=== PATIENT | male | born 1965 | race Caucasian/White ===

== ENCOUNTER 2024-05-31 00:43 | Emergency (ER) | payer BC, SELFPAY ==
[2024-05-31 01:14] VITALS: BP 148/86; PULSE 89; RESP 20; TEMP 37.7; O2SAT 98; BMI 35.5
--- NOTE | 2024-05-31 01:19 | XR_ITS ---
Examination: PA lateral chest 2 views TECHNIQUE: Upright PA lateral chest 2 views Exam date and time: May 31, 2024 0152 hours Comparison July 27, 2021 INDICATIONS: Coughing fever beginning one week ago. FINDINGS: Suspicious for early pneumonia right base Left lung clear Normal heart size IMPRESSION: Suspicious for early right base pneumonia
[2024-05-31 01:24] VITALS: TEMP 37.7
[2024-05-31] MEDS: ACETAMINOPHEN 500 MG TABLET 1000 MG PO (01:24)
--- NOTE | 2024-05-31 01:24 | PD.EDURI ---
Upper Respiratory Inf. RME/HPI General Chief Complaint: Flu Like Symptoms Stated Complaint: sick for a week Time Seen by Provider: 05/31/24 00:56 Source: patient Arrival date/time: 05/31/24 00:43 59-year-old male with a history of type 2 diabetes and hypertension presents to the emergency room with a chief complaint of cough, congestion, fever x 1 week Mode of arrival: ambulatory Limitations: no limitations Related Data Home Medications ?Medication ?Instructions ?Recorded ?Confirmed Metformin Hcl 1 tab PO BID ##0 06/08/17 01/27/21 metoprolol succinate 50 mg 50 mg PO BID ##0 06/08/17 01/27/21 tablet,extended release 24 hr (Toprol XL) fenofibrate 54 mg tablet 120 mg PO QDAY 01/27/21 01/27/21 Allergies Allergy/AdvReac Type Severity Reaction Status Date / Time oxycodone Allergy Intermediate RASH Verified 01/27/21 08:06 codeine Allergy Unknown RASH Verified 01/27/21 08:06 latex Allergy Unknown RASH Verified 01/27/21 08:06 Penicillins Allergy Unknown Rash Verified 01/27/21 08:08 amoxicillin Allergy RASH Verified 01/27/21 08:06 Review of Systems Review of Systems Systems Reviewed: All systems reviewed, normal except as documented Constitutional Constitutional: Reports system reviewed and no additional complaints, except as documented, Denies fatigue, Reports fever(s), Denies headache(s) and Denies weakness Eyes Eyes: Reports system reviewed and no additional complaints, except as documented, Denies blurry vision and Denies change in vision ENT Ears, Nose, Mouth, and Throat: Reports system reviewed and no additional complaints, except as documented, Denies otalgia, Denies headache(s), Denies nasal congestion, Denies throat swelling and Denies vertigo Cardiovascular Cardiovascular: Reports system reviewed and no additional complaints, except as documented, Reports chest pain, Reports dyspnea and Denies dyspnea on exertion Respiratory Respiratory: Reports system reviewed and no additional complaints, except as documented, Reports chest congestion, Reports cough, Reports dyspnea, Denies dyspnea on exertion and Denies wheezing Gastrointestinal Gastrointestinal: Reports system reviewed and no additional complaints, except as documented, Denies abdominal pain, Denies cramping, Denies nausea and Denies vomiting Genitourinary Genitourinary: Reports system reviewed and no additional complaints, except as documented, Denies dysuria and Denies hematuria Musculoskeletal Musculoskeletal: Reports system reviewed and no additional complaints, except as documented and Denies back pain Integumentary/Breasts Skin/Breast: Reports system reviewed and no additional complaints, except as documented and Denies wounds Neurologic Neurologic: Reports system reviewed and no additional complaints, except as documented, Denies confusion, Denies headache(s), Denies lack of coordination, Denies vertigo and Denies weakness Psychiatric Psychiatric: Reports system reviewed and no additional complaints, except as documented, Denies anxiety, Denies confusion, Denies depression, Denies paranoia, Denies suicidal ideation and Denies tactile hallucinations Endocrine Endocrine: Reports system reviewed and no additional complaints, except as documented and Denies fatigue Hematologic/Lymphatic Hematologic/Lymphatic: Reports system reviewed and no additional complaints, except as documented and Denies lymphadenopathy Allergic/Immunologic Allergic/Immunologic: Reports system reviewed and no additional complaints, except as documented, Denies throat swelling, Denies urticaria and Denies wheezing Past Medical History Past Medical History CARDIAC: Positive Cardiac Disorders and Hypertension; Negative Congestive Heart Failure RESPIRATORY: Negative Chronic Obstructive Pulmonary Disease (COPD) or Asthma GENITOURINARY: Negative Renal Disease ENDOCRINE: Positive Diabetes Mellitus Type 2; Negative Diabetes Mellitus Type 1 HEMATOLOGIC: Negative Sickle Cell Disease OTHER HISTORY: Positive Autoimmune Disease Surgical History SURGICAL: Positive Nose Surgery Social History SMOKING STATUS: Former smoker SUBSTANCE USE: does not use ED Exam General Limitations: Present no limitations General appearance: Present alert and in no apparent distress Head Head exam: Present atraumatic Eye Eye exam: Present normal appearance, PERRL and EOMI ENT ENT exam: Present normal exam, normal oropharynx and mucous membranes moist Neck Neck exam: Present normal inspection, full ROM and trachea midline Chest Chest inspection: Present normal inspection and symmetric chest wall rise Respiratory Respiratory exam: Present normal lung sounds bilaterally Cardiovascular Cardiovascular exam: Present regular rate, normal rhythm and normal heart sounds Abdominal Exam Abdominal exam: Present soft and normal bowel sounds Extremities Exam Extremities exam: Present normal inspection and full ROM Back Exam Back exam: Present normal inspection and full ROM Neurological Exam Neurological exam: Present alert, oriented X3 and CN II-XII intact Psychiatric Psychiatric exam: Present normal affect and normal mood Skin Skin exam: Present warm, dry, intact and normal color Course Quality Measures none Orders Category Date Time Status Bedside COVID-19 Antigen Test NOW Care 05/31/24 01:19 Completed Bedside Influenza A&B Antigen Test NOW Care 05/31/24 01:19 Completed XR chest 2V Stat Exams 05/31/24 01:19 Taken Acetaminophen Tab [Tylenol ES Tab] Med 05/31/24 01:19 Discontinued 1,000 mg PO X1 ONE Vital Signs Vital signs: Vital Signs Temperature 100 F 05/31/24 01:14 Pulse Rate 89 05/31/24 01:14 Respiratory Rate 20 05/31/24 01:14 Blood Pressure 148/86 H 05/31/24 01:14 Pulse Oximetry (%) 98 05/31/24 01:14 Oxygen Delivery Method Room Air 05/31/24 01:14 Saturation 98% within normal limits Upper Respiratory Infection MDM Narrative MDM Narrative:: 59-year-old male with a history of type 2 diabetes and hypertension presents to the emergency room with a chief complaint of cough, congestion, fever x 1 week Patient is hemodynamically stable and nontoxic-appearing. Patient has clear bilateral lung sounds with no wheezing or any abnormal breath sounds. Influenza was positive. Patient was discharged and educated to follow-up with primary care provider and return to the emergency room for any evidence of worsening signs or symptoms Patient data External records reviewed:: [facility] previous records Clinical information provided by:: patient Social determinants that could affect healthcare access:: none Patient has the following chronic illnesses:: Type 2 diabetes How is presenting disease/condition affected by chronic disease/condition?: uneffected by Evaluation data The following diagnostics were reviewed and interpreted by me:: lab results Lab and/or radiology exams considered but not ordered:: Labs and radiology exams considered and ordered Interpretation Summary: N/A Medications / Prescriptions Medications or Prescriptions considered but not ordered:: Medication given Medication administrations:: Medication Administration History Discontinued Medications Acetaminophen (Acetaminophen 500 Mg Tablet) 1,000 mg PO X1 ONE Stop: 05/31/24 01:20 Last Admin: 05/31/24 01:24 Dose: 1,000 mg Documented By: CVL Medication given Consultations Consultation(s) initiated? (list below): No Diagnosis Upper Respiratory Differential Diagnosis: upper respiratory infection, viral infection, bronchitis, influenza and pharyngitis Most likely diagnosis given after review of the tests above:: Influenza Admission Indicated Admission indicated?: not indicated Admission Request Was there a request for admission?: No Disposition Plan Disposition Plan: Discharge Discharge Attestation Discharge Attestation: The patient and all family members were given an opportunity to ask questions and understood the discharge instructions. Discharge instructions specifically effects, indications for sooner follow up or return to the emergency department, and the expected course of current diagnosis. Patient condition: Stable Discharge Plan Plan Patient Disposition: HOME (Self Care) Disposition Comment: Stable Prescriptions/Referrals Prescriptions/Med Rec: No Action metoprolol succinate [Toprol XL] 50 MG tablet extended release 24 hr 50 mg PO BID Qty: 0 Metformin Hcl 1,000 MG tablet 1 tab PO BID Qty: 0 fenofibrate 54 mg tablet 120 mg PO QDAY Patient Comments: TAKE 1 TABLET BY MOUTH EVERY DAY Problem List Clinical Impression: Influenza A Patient/Caregiver Discharge Instructions Education Materials: ED Influenza (Adult) Additional Instructions: Please follow-up with your primary care provider in the next 24 to 48 hours. Chest x-ray was negative for any pneumonic infiltrates. Influenza A was positive For any evidence of worsening signs or symptoms please return to the emergency room immediately. Please continue to take Tylenol and ibuprofen for fever management Print Language: Yoruba Stand Alone Forms: [employer] Award Info., Patient Portal Info Letter PA/ANNETTE Supervising Physician SHAYE/ANNETTE Supervising Physician: Dr. Messer
== END 2024-05-31 03:20 | disposition home or self-care (01) ==
LOC: SERX 06:17
PROVIDERS: Emergency Provider Emergency Medicine; PCP Nurse Practitioner
DX: J10.1 Influenza due to other identified influenza virus with other respiratory manifestations (principal); Z87.891 Personal history of nicotine dependence
CPT/HCPCS: 71046; 87400; 87811; 99283; A9270

== ENCOUNTER 2024-09-01 09:38 | Inpatient (IN) | payer BC, SELFPAY ==
[2024-09-01] VITALS (8 sets, daily range): BP systolic 125–205; BP diastolic 82–125; PULSE 80–123; RESP 18–96; TEMP 36.7–37; O2SAT 94–100; BMI 33.9; BMI 34.4
--- NOTE | 2024-09-01 09:58 | XR_ITS ---
Examination: CT soft tissue neck, without intravenous contrast. 2-D coronal reconstructions. 2-D sagittal reconstructions. Date and time of exam :September 01, 2024 1301 hours INDICATIONS: Swelling to the right side of the face and head beginning 3 days ago. CTDI: vol (mGy):15.7 DLP: (mGycm):402 Technique: 1.25 mm axial sections of the neck of the obtained. Coronal and sagittal reconstructions have been obtained. Low dose protocols were performed. One or more of the following dose reduction techniques were used; automated exposure control, adjustment of the mA and/or KV according to patient size, use of iterative reconstruction technique. Findings: Enlarged right parotid gland with periparotid inflammatory change Multiple carotid triangle lymph nodes and lymph nodes adjacent to both parotid glands which may be reactive, the largest measures 13 mm There is also asymmetric enlargement of the right submandibular gland with inflammatory change The larynx appears normal There is edema in the right oropharynx which may be secondary to the severe sialadenitis Normal epiglottis Satisfactory alignment cervical vertebral bodies IMPRESSION: Findings most consistent with severe sialadenitis involving the right parotid and right submandibular gland with reactive lymphadenopathy, follow-up ultrasound imaging suggested
--- NOTE | 2024-09-01 09:58 | XR_ITS ---
Examination: CT brain head without contrast. 2-D sagittal coronal reconstructions Date and time of exam:September 01, 2024 1259 hours INDICATIONS: Right sided swelling in the head right-sided ear pain 3 days CTDI: vol (mGy):54.3 DLP: (mGycm):1118 Technique: Multiple CT axial sections of the brain have been obtained, 5 mm slice thickness. Contrast has not been administered. 2-D sagittal, coronal reconstructions have been obtained Low dose protocols were performed. One or more of the following dose reduction techniques were used; automated exposure control, adjustment of the mA and/or KV according to patient size, use of iterative reconstruction technique. Findings: No significant ventricular enlargement. Intra-axial or extra-axial hemorrhage density is not seen. No mass effect or midline shift Basal cisterns are not remarkable. Fourth ventricle is midline. Cranial vault intact. Impression: Negative for acute hemorrhage, mass effect or midline shift Enlarged right parotid gland with periparotid inflammatory change most consistent with sialadenitis
--- NOTE | 2024-09-01 10:02 | PD.EDRME ---
Rapid Medical Screening Exam RME Arrival date/time: 09/01/24 09:38 This is a 59-year-old male that is being seen today for weakness, hard time swallowing, around right ear swelling along with right neck swelling that is been going on for the past 3 days. Patient was seen by a telemetry doc and was given antibiotics doxycycline. Patient states pain is worse. Patient reports that this started off as an ear infection and is significantly gotten worse. Patient has a history of diabetes, high blood pressure. I have greeted and performed a focused initial assessment of this patient. Initial appropriate labs ordered at this time. A comprehensive ED assessment and evaluation of the patient and analysis of all test and completion of medical decision making process will be conducted by additional ED provider. Chief Complaint: Dental/Oral/Throat Time Seen by Provider: 09/01/24 09:47 Vital signs: Vital Signs Temperature 98.1 F 09/01/24 09:47 Pulse Rate 123 H 09/01/24 09:47 Respiratory Rate 21 H 09/01/24 09:47 Blood Pressure 125/84 09/01/24 09:47 Pulse Oximetry (%) 100 09/01/24 09:47 Oxygen Delivery Method Room Air 09/01/24 09:47
[2024-09-01 11:02] LABS: Lactate (Lactic Acid) 3.7 mMol/L (0.4-2.0)
[2024-09-01 11:09] LABS: Basophils # (Auto) 0.1 Thou/mm3 (0.0-0.2); Basophils % (Auto) 0 % (0-2.5); Eosinophils % (Auto) 0 % (0-10); Hematocrit 45.6 % (41.0-53.0); Immature Granulocytes % (Auto) 1 % (0-0); Immature Granulocytes Auto 0.13 Thou/mm3 (0.00-0.00); Lymphocytes # (Auto) 2.7 Thou/mm3 (1.0-4.8); Lymphocytes % (Auto) 11 % (10-50); Mean Corpuscular HGB Conc 35.1 g/dl (31.0-37.0); Mean Corpuscular Hemoglobin 29.5 pg (25.0-35.0); Mean Corpuscular Volume 84 fL (80-100); Monocytes # (Auto) 1.7 Thou/mm3 (0.0-0.8); Monocytes % (Auto) 7 % (0-12); Neutrophils % (Auto) 82 % (37-80); Nucleated Red Blood Cell % 0 /100 WBC (0); Platelet Count 299 Thou/mm3 (140-440); RDW Standard Deviation 38.8 fL (35.1-43.9); Red Blood Count 5.42 Miln/mm3 (4.50-5.90); White Blood Count 24.6 Thou/mm3 (3.8-10.6)
[2024-09-01 11:31] LABS: Alanine Aminotransferase 24 U/L (10-49); Albumin, Serum 4.6 gm/dL (3.5-5.0); Albumin/Globulin Ratio 1.4 (1.2-2.2); Alkaline Phosphatase 96 U/L (46-116); Anion Gap 15 (7-16); Aspartate Amino Transferase 21 U/L (0-34); BUN/Creatinine Ratio 14 Ratio (12-20); Bilirubin,Total 0.6 mg/dL (0.3-1.2); Blood Urea Nitrogen 21 mg/dL (9-23); C-Reactive Protein > 10.0 mg/dL (0.0-0.9); Calcium 9.7 mg/dL (8.3-10.6); Calcium (Corrected) 9.7 mg/dL (8.5-10.1); Carbon Dioxide 17.4 mMol/L (20.0-31.0); Chloride 101 mMol/L (98-107); Creatinine (Component) 1.5 mg/dL (0.6-1.3); Estimated Creatinine Clearance 57.3 mL/min (>60); Globulin 3.3 gm/dL (2.3-3.5); Glucose 391 mg/dL (74-106); Osmolality,Calculated 285 (275-295); Potassium 4.3 mMol/L (3.4-5.1); Procalcitonin 0.61 ng/ml (0.0-0.49); Sodium 133 mMol/L (136-145); Total Protein 7.9 gm/dL (5.7-8.2); eGFR 53 See Note
--- NOTE | 2024-09-01 12:07 | PD.EDDENTL ---
ED Dental RME/HPI General Chief complaint: Dental/Oral/Throat Stated complaint: SWOLLEN RIGHT JAW Time Seen by Provider: 09/01/24 09:47 Arrival date/time: 09/01/24 09:38 RME / HPI RME / HPI Narrative: 09/01/24 09:38 This is a 59-year-old male that is being seen today for weakness, hard time swallowing, around right ear swelling along with right neck swelling that is been going on for the past 3 days. Patient was seen by a telemetry doc and was given antibiotics doxycycline. Patient states pain is worse. Patient reports that this started off as an ear infection and is significantly gotten worse. Patient has a history of diabetes, high blood pressure. I have greeted and performed a focused initial assessment of this patient. Initial appropriate labs ordered at this time. A comprehensive ED assessment and evaluation of the patient and analysis of all test and completion of medical decision making process will be conducted by additional ED provider. DR. DERAS MAIN ED EVALUATION: Related Data Home Medications ?Medication ?Instructions ?Recorded ?Confirmed Metformin Hcl 1 tab PO BID ##0 06/08/17 01/27/21 metoprolol succinate 50 mg 50 mg PO BID ##0 06/08/17 01/27/21 tablet,extended release 24 hr (Toprol XL) fenofibrate 54 mg tablet 120 mg PO QDAY 01/27/21 01/27/21 Allergies Allergy/AdvReac Type Severity Reaction Status Date / Time oxycodone Allergy Intermediate RASH Verified 09/01/24 09:41 codeine Allergy Unknown RASH Verified 09/01/24 09:41 latex Allergy Unknown RASH Verified 09/01/24 09:41 Penicillins Allergy Unknown Rash Verified 09/01/24 09:41 amoxicillin Allergy RASH Verified 09/01/24 09:41 Course Orders Category Date Time Status CT head/brain wo con Stat Exams 09/01/24 09:[address] soft tissue neck wo con Stat Exams 09/01/24 09:58 Ordered Blood Culture (Lab) Stat Lab 09/01/24 10:47 Received CBC Stat Lab 09/01/24 10:52 Completed CRP [C-Reactive Protein] Stat Lab 09/01/24 10:52 Completed Comprehensive Metabolic Panel Stat Lab 09/01/24 10:52 Completed Lactate (Lactic Acid) Stat Lab 09/01/24 10:52 Results Procalcitonin Stat Lab 09/01/24 10:52 Completed LORazepam [Ativan Inj] Med 09/01/24 11:37 Discontinued 1 mg IVP X1 ONE Sodium Chloride 0.9% 1000 ml [Ns] 1,000 ml Med 09/01/24 11:37 Active IV 999 mls/hr Vancomycin/Ns 1 gm Ivpb 200 ml Med 09/01/24 11:37 Active IV X1 cefTRIAXone/D5w 1gm IV premix [Rocephin/D5w 1gm IV Med 09/01/24 11:37 Discontinued premix] 1 gm in 50 ml IV X1 fentaNYL INJ [Sublimaze Inj] Med 09/01/24 11:37 Discontinued 50 mcg IVP X1 ONE Vital Signs Vital signs: Vital Signs Temperature 98.1 F 09/01/24 09:47 Pulse Rate 123 H 09/01/24 09:47 Respiratory Rate 21 H 09/01/24 09:47 Blood Pressure 125/84 09/01/24 09:47 Pulse Oximetry (%) 100 09/01/24 09:47 Oxygen Delivery Method Room Air 09/01/24 09:47 Dental / Oral Medications / Prescriptions Medication administrations:: Medication Administration History Vancomycin/Sodium Chloride (Vancomycin/Ns 1 Gm Ivpb) 200 mls @ 120 mls/hr IV X1 ONE Stop: 09/01/24 13:16 Sodium Chloride (Ns) 1,000 mls @ 999 mls/hr IV .Q1H1M ONE Stop: 09/01/24 12:37 Discontinued Medications Fentanyl Citrate (Fentanyl Cit Inj 50 Mcg/Ml Amp 2ml) 50 mcg IVP X1 ONE Stop: 09/01/24 11:38 Ceftriaxone Sodium/Dextrose (Rocephin/D5w 1gm Iv Premix) 1 gm in 50 mls @ 100 mls/hr IV X1 ONE Stop: 09/01/24 12:06 Lorazepam (Lorazepam 2 Mg/Ml Vial) 1 mg IVP X1 ONE Stop: 09/01/24 11:38 Discharge Plan Prescriptions/Referrals Prescriptions/Med Rec: No Action metoprolol succinate [Toprol XL] 50 MG tablet extended release 24 hr 50 mg PO BID Qty: 0 Metformin Hcl 1,000 MG tablet 1 tab PO BID Qty: 0 fenofibrate 54 mg tablet 120 mg PO QDAY Patient Comments: TAKE 1 TABLET BY MOUTH EVERY DAY Referrals: Hien,Lisa, [employer]IST [Primary Care Provider] - In 1 week Patient/Caregiver Discharge Instructions Print Language: Setswana
--- NOTE | 2024-09-01 12:09 | PD.EDEAR ---
ED Ear RME/HPI General Chief complaint: Dental/Oral/Throat Stated complaint: SWOLLEN RIGHT JAW Time Seen by Provider: 09/01/24 09:47 Arrival date/time: 09/01/24 09:38 RME / HPI RME / HPI Narrative: 09/01/24 09:38 This is a 59-year-old male that is being seen today for weakness, hard time swallowing, around right ear swelling along with right neck swelling that is been going on for the past 3 days. Patient was seen by a telemetry doc and was given antibiotics doxycycline. Patient states pain is worse. Patient reports that this started off as an ear infection and is significantly gotten worse. Patient has a history of diabetes, high blood pressure. I have greeted and performed a focused initial assessment of this patient. Initial appropriate labs ordered at this time. A comprehensive ED assessment and evaluation of the patient and analysis of all test and completion of medical decision making process will be conducted by additional ED provider. DR. JULIAN MAIN ED EVALUATION: 59 year old male with history of diabetes, hypertension, presented to the ER with chief complaint of right ear pain and swelling for the past 3 days that traveled to the right side of the jaw/neck due to an ear infection. Per patient, has difficulty swallowing accomplained by weakness. Patient states that he was given antibiotics doxycycline but the pain continued to get worse. Patient states he has allergies to oxycodone, codeine, penicillin, and amoxicillin. Related Data Home Medications ?Medication ?Instructions ?Recorded ?Confirmed Metformin Hcl 1 tab PO BID ##0 06/08/17 01/27/21 metoprolol succinate 50 mg 50 mg PO BID ##0 06/08/17 01/27/21 tablet,extended release 24 hr (Toprol XL) fenofibrate 54 mg tablet 120 mg PO QDAY 01/27/21 01/27/21 Allergies Allergy/AdvReac Type Severity Reaction Status Date / Time oxycodone Allergy Intermediate RASH Verified 09/01/24 09:41 codeine Allergy Unknown RASH Verified 09/01/24 09:41 latex Allergy Unknown RASH Verified 09/01/24 09:41 Penicillins Allergy Unknown Rash Verified 09/01/24 09:41 amoxicillin Allergy RASH Verified 09/01/24 09:41 Review of Systems Review of Systems Systems Reviewed: All systems reviewed, normal except as documented Narrative Review of Systems: Gen: No fever, no chills, no weight loss EYES: No discharge, no visual changes, no pain HEENT: +ear pain and swelling, +difficulty swallowing, no congestion, no sore throat PULM: No shortness of breath, no cough, no congestion CV: No chest pain, no dyspnea on exertion, no palpitations GI: No nausea, no vomiting, no diarrhea, no pain, no constipation : No frequency, no urgency, no dysuria Musc/skel: No joint pain, no back pain Skin: No rash Psyc: No hallucinations, no depression Heme/Lymph: No easy bleeding or bruising tendencies Neuro: +weakness, no headache Past Medical History Past Medical History CARDIAC: Positive Hypercholesterolemia and Hypertension RESPIRATORY: Positive Respiratory Disorders and Pneumonia REPRODUCTIVE: Negative Testicular Cancer MUSCULOSKELETAL: Positive Musculoskeletal Disorders and Arthritis ENDOCRINE: Positive Endocrine Disorders and Diabetes Mellitus Type 2 (Jardiance and metformin) PSYCHO/SOCIAL: Positive Anxiety OTHER HISTORY: Positive Autoimmune Disease, Anesthesia Reactions (Per pt unable to sleep for 2 weeks after sx) and Measles; Negative Testicular Cancer Surgical History SURGICAL: Positive Nose Surgery and Knee Sx Social History SMOKING STATUS: Never smoker SUBSTANCE USE: does not use ED Exam Narrative Physical exam: GENERAL APPEARANCE: alert and oriented x 4, well-developed, well-nourished, no acute distress HEENT: Normocephalic, right jaw edema, tenderness ; pupils equal, round, reactive to light; EOMI; mucous membranes pink, moist; oropharynx clear NECK: Supple LUNGS: CTABL; no wheezes, no rales, no rhonchi HEART: Regular rate, regular rhythm; normal S1, S2; no murmurs ABDOMEN: non distended; normal BS; soft, no tenderness, no guarding, no rebound; no masses, no organomegaly, no hernia BACK: no CVA tenderness EXTREMITIES: atraumatic; no edema NEUROLOGIC: awake; alert and oriented x4; cranial nerves II-XII grossly intact; no focal sensory or motor deficits PSYCHIATRIC: appropriate mood and affect SKIN: warm, dry, erythema; no rashes Course Quality Measures none Orders Category Date Time Status CT head/brain wo con Stat Exams 09/01/24 09:[address] soft tissue neck wo con Stat Exams 09/01/24 09:58 Completed Blood Culture (Lab) Stat Lab 09/01/24 10:47 Received CBC Stat Lab 09/01/24 10:52 Completed CRP [C-Reactive Protein] Stat Lab 09/01/24 10:52 Completed Comprehensive Metabolic Panel Stat Lab 09/01/24 10:52 Completed Lactate (Lactic Acid) Stat Lab 09/01/24 10:52 Completed Lactic Acid, 3 HR Stat Lab 09/01/24 14:02 Received Procalcitonin Stat Lab 09/01/24 10:52 Completed LORazepam [Ativan Inj] Med 09/01/24 11:37 Discontinued 1 mg IVP X1 ONE Sodium Chloride 0.9% 1000 ml [Ns] 1,000 ml Med 09/01/24 11:37 Discontinued IV 999 mls/hr Vancomycin/Ns 1 gm Ivpb 200 ml Med 09/01/24 11:37 Discontinued IV X1 cefTRIAXone/D5w 1gm IV premix [Rocephin/D5w 1gm IV Med 09/01/24 11:37 Discontinued premix] 1 gm in 50 ml IV X1 fentaNYL INJ [Sublimaze Inj] Med 09/01/24 11:37 Discontinued 50 mcg IVP X1 ONE Vital Signs Vital signs: Vital Signs Temperature 98.1 F 09/01/24 09:47 Pulse Rate 123 H 09/01/24 09:47 Respiratory Rate 21 H 09/01/24 09:47 Blood Pressure 125/84 09/01/24 09:47 Pulse Oximetry (%) 100 09/01/24 09:47 Oxygen Delivery Method Room Air 09/01/24 09:47 Ear MDM Narrative MDM Narrative:: IBetty am scribing for and in the presence of Dr. Julian Patient data External records reviewed:: [facility] previous records Clinical information provided by:: patient and spouse Social determinants that could affect healthcare access:: none Patient has the following chronic illnesses:: diabetes, hypertension How is presenting disease/condition affected by chronic disease/condition?: uneffected by Evaluation data The following diagnostics were reviewed and interpreted by me:: lab results and radiology exam(s) Lab and/or radiology exams considered but not ordered:: none Interpretation Summary: Ordering Physician: Madeline Damon NP Date of Service: 09/01/24 Procedure(s): CT head/brain wo con Accession Number(s): [id number] cc: Lisa Stanford; Juan Alberto Gutierrez MD; Madeline Damon NP~ Examination: CT brain head without contrast. 2-D sagittal coronal reconstructions Date and time of exam:September 01, 2024 1259 hours INDICATIONS: Right sided swelling in the head right-sided ear pain 3 days CTDI: vol (mGy):54.3 DLP: (mGycm):1118 Technique: Multiple CT axial sections of the brain have been obtained, 5 mm slice thickness. Contrast has not been administered. 2-D sagittal, coronal reconstructions have been obtained Low dose protocols were performed. One or more of the following dose reduction techniques were used; automated exposure control, adjustment of the mA and/or KV according to patient size, use of iterative reconstruction technique. Findings: No significant ventricular enlargement. Intra-axial or extra-axial hemorrhage density is not seen. No mass effect or midline shift Basal cisterns are not remarkable. Fourth ventricle is midline. Cranial vault intact. Impression: Negative for acute hemorrhage, mass effect or midline shift Enlarged right parotid gland with periparotid inflammatory change most consistent with sialadenitis Dictated By: Juan Alberto Gutierrez MD Signed By: <Electronically signed by Juan Alberto Gutierrez MD in OV> 09/01/24 1323 Ordering Physician: Madeline Damon NP Date of Service: 09/01/24 Procedure(s): CT soft tissue neck wo con Accession Number(s): [id number] cc: Lisa Stanford; Juan Alberto Gutierrez MD; Madeline Damon NP~ Examination: CT soft tissue neck, without intravenous contrast. 2-D coronal reconstructions. 2-D sagittal reconstructions. Date and time of exam :September 01, 2024 1301 hours INDICATIONS: Swelling to the right side of the face and head beginning 3 days ago. CTDI: vol (mGy):15.7 DLP: (mGycm):402 Technique: 1.25 mm axial sections of the neck of the obtained. Coronal and sagittal reconstructions have been obtained. Low dose protocols were performed. One or more of the following dose reduction techniques were used; automated exposure control, adjustment of the mA and/or KV according to patient size, use of iterative reconstruction technique. Findings: Enlarged right parotid gland with periparotid inflammatory change Multiple carotid triangle lymph nodes and lymph nodes adjacent to both parotid glands which may be reactive, the largest measures 13 mm There is also asymmetric enlargement of the right submandibular gland with inflammatory change The larynx appears normal There is edema in the right oropharynx which may be secondary to the severe sialadenitis Normal epiglottis Satisfactory alignment cervical vertebral bodies IMPRESSION: Findings most consistent with severe sialadenitis involving the right parotid and right submandibular gland with reactive lymphadenopathy, follow-up ultrasound imaging suggested Dictated By: Juan Alberto Gutierrez MD Signed By: <Electronically signed by Juan Alberto Gutierrez MD in OV> 09/01/24 1331 Medications / Prescriptions Medications or Prescriptions considered but not ordered:: none Medication administrations:: Medication Administration History Discontinued Medications Fentanyl Citrate (Fentanyl Cit Inj 50 Mcg/Ml Amp 2ml) 50 mcg IVP X1 ONE Stop: 09/01/24 11:38 Last Admin: 09/01/24 12:15 Dose: 50 mcg Documented By: STEPAN Vancomycin/Sodium Chloride (Vancomycin/Ns 1 Gm Ivpb) 200 mls @ 120 mls/hr IV X1 ONE Stop: 09/01/24 13:16 Last Admin: 09/01/24 13:17 Dose: 120 mls/hr Documented By: STEPAN Sodium Chloride (Ns) 1,000 mls @ 999 mls/hr IV .Q1H1M ONE Stop: 09/01/24 12:37 Last Admin: 09/01/24 12:24 Dose: 999 mls/hr Documented By: STEPAN Ceftriaxone Sodium/Dextrose (Rocephin/D5w 1gm Iv Premix) 1 gm in 50 mls @ 100 mls/hr IV X1 ONE Stop: 09/01/24 12:06 Last Admin: 09/01/24 12:25 Dose: 100 mls/hr Documented By: STEPAN Lorazepam (Lorazepam 2 Mg/Ml Vial) 1 mg IVP X1 ONE Stop: 09/01/24 11:38 Last Admin: 09/01/24 12:14 Dose: 1 mg Documented By: STEPAN see above. Consultations Consultation(s) initiated? (list below): No Consultation #1 (Physician, Specialty, Details): 1346: Admission Resident working with Dr. Birmingham made aware of the patient?s HPI, PMHx, lab and/or radiology results. Treatment plan was discussed. Will admit for further evaluation and management. Accepts patient for admission. Diagnosis Ear Differential Diagnosis: otitis externa, otitis media and cerumen impaction Most likely diagnosis given after review of the tests above:: sialadenitis Admission Indicated Admission indicated?: indicated Admission Request Was there a request for admission?: Yes Admission Attestation Admission request attestation: Discussed case with [] from Hospitalist service regarding admission. Discussed patients ED course, exam findings, labs, and radiology results. The Hospitalist [agrees,declines] to accept the patient for admission. Disposition Plan Disposition Plan: Admit Medical Decision Making Lab Data 09/01/24 10:52 09/01/24 10:52 Labs: Lab Results 09/01/24 Range/Units 10:52 WBC 24.6 H (3.8-10.6) Thou/mm3 RBC 5.42 (4.50-5.90) Miln/mm3 Hgb 16.0 (13.5-16.0) g/dL Hct 45.6 (41.0-53.0) % MCV 84 (80-100) fL MCH 29.5 (25.0-35.0) pg MCHC 35.1 (31.0-37.0) g/dl RDW Std Deviation 38.8 (35.1-43.9) fL Plt Count 299 (140-440) Thou/mm3 Neut % (Auto) 82 H (37-80) % Lymph % (Auto) 11 (10-50) % [place] % (Auto) 7 (0-12) % Eos % (Auto) 0 (0-10) % Baso % (Auto) 0 (0-2.5) % Neut # (Auto) 20.0 H (1.8-7.7) Thou/mm3 Lymph # (Auto) 2.7 (1.0-4.8) Thou/mm3 [place] # (Auto) 1.7 H (0.0-0.8) Thou/mm3 Eos # (Auto) 0.0 (0.0-0.5) Thou/mm3 Baso # (Auto) 0.1 (0.0-0.2) Thou/mm3 Immature Gran # (Auto) 0.13 H (0.00-0.00) Thou/mm3 Absolute Nucleated RBC 0.00 (0.00-0.00) Thou/mm3 Immature Gran % 1 H (0-0) % Nucleated RBC % 0 (0) /100 WBC Sodium 133 L (136-145) mMol/L Potassium 4.3 (3.4-5.1) mMol/L Chloride 101 (98-107) mMol/L Carbon Dioxide 17.4 L (20.0-31.0) mMol/L Anion Gap 15 (7-16) BUN 21 (9-23) mg/dL Creatinine 1.5 H (0.6-1.3) mg/dL Estim Creat Clear Calc 57.3 L (>60) mL/min eGFR 53 L (60 - ) See Note BUN/Creatinine Ratio 14 (12-20) Ratio Glucose 391 H (74-106) mg/dL Calculated Osmolality 285 (275-295) Lactic Acid 3.7 H (0.4-2.0) mMol/L Calcium 9.7 (8.3-10.6) mg/dL Corrected Calcium 9.7 (8.5-10.1) mg/dL Total Bilirubin 0.6 (0.3-1.2) mg/dL AST 21 (0-34) U/L ALT 24 (10-49) U/L Alkaline Phosphatase 96 (46-116) U/L C-Reactive Prot, Quant > 10.0 H (0.0-0.9) mg/dL Total Protein 7.9 (5.7-8.2) gm/dL Albumin 4.6 (3.5-5.0) gm/dL Globulin 3.3 (2.3-3.5) gm/dL Albumin/Globulin Ratio 1.4 (1.2-2.2) Procalcitonin 0.61 H (0.0-0.49) ng/ml Discharge Plan Plan Patient Disposition: Admit Acute Care w/in Hospital Prescriptions/Referrals Prescriptions/Med Rec: No Action metoprolol succinate [Toprol XL] 50 MG tablet extended release 24 hr 50 mg PO BID Qty: 0 Metformin Hcl 1,000 MG tablet 1 tab PO BID Qty: 0 fenofibrate 54 mg tablet 120 mg PO QDAY Patient Comments: TAKE 1 TABLET BY MOUTH EVERY DAY Referrals: Lisa Stanford FNP [Primary Care Provider] - In 1 week Problem List Clinical Impression: Sialadenitis Patient/Caregiver Discharge Instructions Print Language: Cameroonian Stand Alone Forms: [facility] Award Info., Patient Portal Info Letter
[2024-09-01] MEDS: LORazepam 2 MG/ML VIAL 1 MG IVP (12:14)
[2024-09-01] MEDS: fentaNYL CIT INJ 50 mCg/ML AMP 2ML IVP (12:15)
[2024-09-01] MEDS: SODIUM CHLORIDE 0.9% 1000 ML 1,000 ML 999 ML IV (12:24)
[2024-09-01] MEDS: cefTRIAXone/D5w 1gm IV premix 1 GM/50 ML BAG IV (12:25)
[2024-09-01] MEDS: VANCOMYCIN/NS 1 GM IVPB 200 ML IV ×2 (13:17→21:55)
[2024-09-01 13:57] LABS: Reflex Lactate? Y
[2024-09-01 14:05] LABS: Lactic Acid, 3 HR 2.5 mMol/L (0.4-2.0)
--- NOTE | 2024-09-01 15:25 | ESHP_ITS ---
<Statement entered by Aris Whitten MD - 09/02/24 10:56> I discussed with and supervised the electrical engineering intern physician involved in the care of this patient. Patient assessment and plan was discussed with entire medicine team, including my attending. I agree with the assessment and plan as documented by electrical engineering intern doctor. Patient care was discussed with my attending physician Dr. Valencia Whitten, PGY-2 Documentation for date of: 09/01/24 HPI History of Present Illness Chief complaint: facial pain History of present illness: Sina Mccann is 59 yr male with PMH of hypertension, Xbo-ssvgcqy-porufchwc type 2 diabetes, and hyperlipidemia presenting to ED due to right-sided facial pain parotid area since the past 3 days. Patient stated that he was in usual state of health there was onset of right ear pain. Ear pain progressed to cheek and jaw pain. Endorses dry mouth, chills, sweats, decreased appetite, dysuria, pain with swallowing. Has had poor oral intake since onset of symptoms. Denies any previous episodes in the past. There have been no recent dental procedures or any oral trauma. Pain is 10/10, dull, non radiating, not causing any other symptoms except dry mouth. In ED, BP 125/84, tachycardic 125, afebrile. Leukocytosis a WBC 24, sodium 133, creatinine 1.5, glucose 391, lactic acid elevated 3.7, Pro-Jonathan elevated 0.61. Otherwise unremarkable. CT soft tissue neck confirmed severe sialadenitis involving the right parotid and right submandibular gland with reactive lymphadenopathy. He was given fentanyl 50 mcg x 1, 1 L bolus NS, ceftriaxone 1 g x 1, vancomycin x 1. Patient will be admitted for treatment of sialadenitis with antibiotics. PMH: as noted above PSH: b/l menisci surgery FamHx: non contributory Social: retired, lives with . Denies smoking, denies drinking. Meds: amlodipine 2.5 mg daily, metoprolol succ 50mg BID, valsartan 160mg daily Allergies: oxycodone, codeine, latex, penicillin (rashes) Review of Systems Review of Systems Systems Reviewed: All systems reviewed, normal except as documented Exam Vital Signs Temp Pulse Resp BP Pulse Ox O2 Del Method 98.0 F 115 H 20 177/91 H 96 Room Air 09/01/24 14:56 09/01/24 14:56 09/01/24 14:56 09/01/24 14:56 09/01/24 14:56 09/01/24 14:56 Narrative Exam General: Middle aged male, acute distress from pain, hard time speaking. HEENT: NCAT, No JVD noted. Mucosa dry. Pupils are equal and reactive to light bilaterally, right parotid area inflammed and swollen. Tender to touch. Could not examine inside mouth due to pain. Cardiovascular: Normal S1 and S2. Regular rate and rhythm. Respiratory: Lungs are clear to auscultation bilaterally. No wheezing or crackles heard. Abdomen: Soft, nontender, not distended, normal bowel sounds. Skin: Warm to touch, dry, no rashes noted Musculoskeletal: No gross injuries. Able to move all 4 extremities. No pitting edema Neuro: Alert and oriented x3. No focal neuro deficits. Psych: Normal affect and mood Results: Labs 09/02/24 05:30 09/02/24 05:30 Labs: Short CBC 09/01/24 Range/Units 10:52 WBC 24.6 H (3.8-10.6) Thou/mm3 Hgb 16.0 (13.5-16.0) g/dL Hct 45.6 (41.0-53.0) % Plt Count 299 (140-440) Thou/mm3 BMP 09/01/24 10:52 Sodium 133 L Potassium 4.3 Chloride 101 Carbon Dioxide 17.4 L BUN 21 Creatinine 1.5 H Glucose 391 H Calcium 9.7 Liver Function 09/01/24 Range/Units 10:52 Total Bilirubin 0.6 (0.3-1.2) mg/dL AST 21 (0-34) U/L ALT 24 (10-49) U/L Alkaline Phosphatase 96 (46-116) U/L Albumin 4.6 (3.5-5.0) gm/dL Quality Measures Quality Measures none Medications Home Medications and Allergies Home Medications ?Medication ?Instructions ?Recorded ?Confirmed ?Type Metformin Hcl 0.5 tab PO BID ##0 06/08/17 09/01/24 History metoprolol succinate 50 mg 50 mg PO BID ##0 06/08/17 0 09/01/24 History tablet,extended release 24 hr (Toprol XL) fenofibrate 54 mg tablet 120 mg PO QDAY 01/27/2108/08 History amlodipine 2.5 mg tablet 2.5 mg PO QDAY 09/01/2408/08 History atorvastatin 20 mg tablet 20 mg PO QDAY 09/01/2409/01 History diclofenac sodium 75 mg 75 mg PO QDAY 09/01/2409/01 History tablet,delayed release empagliflozin 25 mg tablet 25 mg PO QDAY 09/01/2408/08 History (Jardiance) famotidine 20 mg tablet 20 mg PO QDAY 09/01/2409/01 History gemfibrozil 600 mg tablet 600 mg PO QDAY 09/01/2408/08 History glipizide 5 mg tablet, extended 5 mg PO QDAY 09/01/24 09/01/24 History release 24 hr pregabalin 50 mg capsule 50 mg PO QDAY 09/01/2409/01 History semaglutide 7 mg tablet (Rybelsus) 7 mg PO QDAY 09/01/24 History tamsulosin 0.4 mg capsule 0.4 mg PO Q24H 09/01/2408/08 History valsartan 160 mg tablet 160 mg PO QDAY 09/01/2408/08 History Allergies Allergy/AdvReac Type Severity Reaction Status Date / Time oxycodone Allergy Intermediate RASH Verified 09/01/24 09:41 codeine Allergy Unknown RASH Verified 09/01/24 09:41 latex Allergy Unknown RASH Verified 09/01/24 09:41 Penicillins Allergy Unknown Rash Verified 09/01/24 09:41 amoxicillin Allergy RASH Verified 09/01/24 09:41 Visit Medications Acetaminophen (Acetaminophen 325 Mg Tablet) 650 mg PO Q6H PRN PRN Reason: Fever >100.3 or pain 1-3 Stop: 10/01/24 15:12 Enoxaparin Sodium (Enoxaparin Sod Inj 40 Mg/0.4 Ml Syringe) 40 mg SC QDAY DANY Stop: 09/16/24 08:59 Cefepime HCl 2 gm/ Sodium (Chloride) 50 mls @ 100 mls/hr IV Q12HR DANY Stop: 09/08/24 15:23 Ketorolac Tromethamine (Ketorolac Inj 30 Mg/Ml Vial) 30 mg IVP X1 ONE Stop: 09/01/24 15:25 Morphine Sulfate (Morphine Sulf Inj 10 Mg/Ml Vial) 1 mg IVP Q4HR PRN PRN Reason: pain 6-10 Ondansetron HCl (Ondansetron Inj 2 Mg/Ml Inj 2 Ml) 4 mg IV Q6H PRN; Protocol PRN Reason: NAUSEA OR VOMITING Stop: 10/01/24 15:12 Pharmacy Consult (Vancomycin Pharmacy To Dose 1 Each Each) 1 each IV QDAY DANY Stop: 10/01/24 15:29 Discontinued Medications Fentanyl Citrate (Fentanyl Cit Inj 50 Mcg/Ml Amp 2ml) 50 mcg IVP X1 ONE Stop: 09/01/24 11:38 Last Admin: 09/01/24 12:15 Dose: 50 mcg Vancomycin/Sodium Chloride (Vancomycin/Ns 1 Gm Ivpb) 200 mls @ 120 mls/hr IV X1 ONE Stop: 09/01/24 13:16 Last Admin: 09/01/24 13:17 Dose: 120 mls/hr Sodium Chloride (Ns) 1,000 mls @ 999 mls/hr IV .Q1H1M ONE Stop: 09/01/24 12:37 Last Admin: 09/01/24 12:24 Dose: 999 mls/hr Ceftriaxone Sodium/Dextrose (Rocephin/D5w 1gm Iv Premix) 1 gm in 50 mls @ 100 mls/hr IV X1 ONE Stop: 09/01/24 12:06 Last Admin: 09/01/24 12:25 Dose: 100 mls/hr Lorazepam (Lorazepam 2 Mg/Ml Vial) 1 mg IVP X1 ONE Stop: 09/01/24 11:38 Last Admin: 09/01/24 12:14 Dose: 1 mg Assessment & Plan Plan Sina Mccann is 59 yr male with PMH of hypertension, Vdl-ujiyvet-pqhsqznfp type 2 diabetes, and hyperlipidemia presenting to ED due to right-sided facial pain parotid area since the past 3 days. Ear pain progressed to cheek and jaw pain. Endorses dry mouth, chills, sweats, decreased appetite, dysuria. Patient will be admitted for treatment of sialadenitis. #Sepsis 2/2 Severe sialadenitis #Leukocytosis DDx: Stone blockage, Sjogren's syndrome, poor oral hygiene, anticholinergics Started as ear pain 3 days ago and progressively worsened. Patient has difficulty swallowing, tender to touch, dry mouth, sweats, chills. CT soft tissue neck confirmed severe sialadenitis involving the right parotid and right submandibular gland with reactive lymphadenopathy. Patient meets SIRS/4, sepsis alert called. Sepsis ruled in with evidence of endorgan damage as evidenced with OMAR. Leukocytosis a WBC 24, lactic acid elevated 3.7, Pro-Jonathan elevated 0.61, afebrile on admission. -Cefepime 2 g BID (09/01-) ? Pain management with ketorolac 30 mg IV and morphine 1 mg IV q4hr PRN - Vancomycin (09/01-) - Blood cultures pending ? Full liquid diet ? Follow-up ultrasound soft tissue head and neck #OMAR Most likely pre renal in setting of poor oral intake past few days. Cr at admission 1.5. (Cr baseline appears to be 1.2) -x1 more bolus NS for total of two -avoid nephrotoxic agents -daily CMP #Hx HTN #Hx HLD ? Resumed amlodipine 2.5 mg daily ? Metoprolol succinate 50 mg p.o. BID ? Valsartan 160 mg daily Health maintenance: Dispo: med surg, abx FEN: full liquid DVT prophylaxis: Lovenox 40 CODE STATUS: Full code The patient's management plan was discussed with my attending physician Dr. Birmingham. Kathryn Mcnally, PGY-1 Attending Provider Attestation/Addendum I discussed with and supervised the resident physician who took care of this patient. I agree with the assessment and plan as above. Patient was seen and examined in ER bed 9. Complains of right ear pain and facial pain with mass and right cheek area. X-ray showed sialoadenitis. Discussed with Dr. Julian. She will call for ENT evaluation. Patient will be admitted for antibiotic treatment
--- NOTE | 2024-09-01 15:37 | PC.NURSE ---
Notified Dr. Mcnally of pt BP of 205/125 (R arm) and 194/103 (L arm). MD asked RN to enter home BP meds in system and she will order meds to resume
--- NOTE | 2024-09-01 15:45 | XR_ITS ---
Examination: Ultrasound soft tissue neck TECHNIQUE: Carpenter scale sonographic images soft tissue neck Examination date time: September 01, 2024 1544 hours INDICATIONS: Right neck swelling and pain beginning 3 days ago FINDINGS: Multiple soft tissue neck lymph nodes, the largest in the right neck 19 x 13 mm, 11 x 8 mm, 19 x 7 mm, largest in the left neck 15 x 7 mm, 19 x 11 mm, 12 x 8 mm IMPRESSION: Significant cervical lymphadenopathy, these were noted on the CT soft tissue neck study today, likely reactive relative to the sialadenitis involving the right parotid and right submandibular gland, which are not commented upon by the technologist
[2024-09-01] MEDS: KETOROLAC INJ 30 MG/ML VIAL IVP (16:13)
[2024-09-01] MEDS: CEFEPIME INJ 2 GM in SODIUM CHLORIDE 0.9% (Popper) 50 ML IV ×2 (16:14→20:17)
[2024-09-01] MEDS: VALSARTAN 80 MG TABLET 160 MG PO (16:20)
[2024-09-01] MEDS: amLODIPine BESYLATE 2.5 MG TABLET PO (16:21)
[2024-09-01] MEDS: METOPROLOL SUCCINATE XL 25 MG TABCR 50 MG PO (20:17)
[2024-09-01] MEDS: KETOROLAC INJ 30 MG/ML VIAL 15 MG IVP (22:42)
[2024-09-01 23:22] LABS: Collection Type, Urine Clean Catch; RBC,Urine 0 /hpf (0-3); WBC,Urine 0 /hpf (0-5)
[2024-09-02] VITALS (10 sets, daily range): BP systolic 103–169; BP diastolic 54–99; PULSE 63–103; RESP 16–99; TEMP 35.8–37.2; O2SAT 92–97
[2024-09-02 00:20] LABS: Bilirubin,Urine Negative (Negative); Blood,Urine Negative (Negative); Clarity,Urine Clear (Clear/Hazy); Color,Urine Lt-Yellow (Lt Yel-Yel); Glucose, Urine 4+ (Negative); Ketones,Urine 1+ (Negative); Leukocyte Esterase,Urine Negative (Negative); Nitrite,Urine Negative (Negative); Protein,Urine 2+ (Neg - Trace); Specific Gravity,Urine 1.022 (1.001-1.035); Squamous Epithelial Cell,Urine < 1 /hpf (0-5); Urobilinogen,Urine Negative mg/dL (0.0-1.0)
[2024-09-02] MEDS: MORPHINE SULF INJ 10 MG/ML VIAL IVP (04:36)
[2024-09-02 06:35] LABS: Alanine Aminotransferase 23 U/L (10-49); Albumin, Serum 4.5 gm/dL (3.5-5.0); Albumin/Globulin Ratio 1.5 (1.2-2.2); Alkaline Phosphatase 103 U/L (46-116); Anion Gap 12 (7-16); Aspartate Amino Transferase 23 U/L (0-34); BUN/Creatinine Ratio 18 Ratio (12-20); Bilirubin,Total 0.4 mg/dL (0.3-1.2); Blood Urea Nitrogen 22 mg/dL (9-23); Calcium 9.5 mg/dL (8.3-10.6); Calcium (Corrected) 9.5 mg/dL (8.5-10.1); Carbon Dioxide 22.2 mMol/L (20.0-31.0); Chloride 98 mMol/L (98-107); Creatinine (Component) 1.2 mg/dL (0.6-1.3); Estimated Creatinine Clearance 72.1 mL/min (>60); Globulin 3.1 gm/dL (2.3-3.5); Glucose 280 mg/dL (74-106); Magnesium 1.7 mg/dL (1.6-2.6); Osmolality,Calculated 277 (275-295); Potassium 3.9 mMol/L (3.4-5.1); Sodium 132 mMol/L (136-145); Total Protein 7.6 gm/dL (5.7-8.2); eGFR > 60 See Note
[2024-09-02 06:40] LABS: Basophils # (Auto) 0.1 Thou/mm3 (0.0-0.2); Basophils % (Auto) 0 % (0-2.5); Eosinophils # (Auto) 0.1 Thou/mm3 (0.0-0.5); Eosinophils % (Auto) 1 % (0-10); Hematocrit 44.2 % (41.0-53.0); Hemoglobin 15.4 g/dL (13.5-16.0); Immature Granulocytes % (Auto) 0 % (0-0); Immature Granulocytes Auto 0.08 Thou/mm3 (0.00-0.00); Lymphocytes # (Auto) 2.4 Thou/mm3 (1.0-4.8); Lymphocytes % (Auto) 13 % (10-50); Mean Corpuscular HGB Conc 34.8 g/dl (31.0-37.0); Mean Corpuscular Hemoglobin 29.8 pg (25.0-35.0); Mean Corpuscular Volume 86 fL (80-100); Monocytes # (Auto) 1.5 Thou/mm3 (0.0-0.8); Monocytes % (Auto) 8 % (0-12); Neutrophils # (Auto) 14.2 Thou/mm3 (1.8-7.7); Neutrophils % (Auto) 77 % (37-80); Nucleated Red Blood Cell % 0 /100 WBC (0); Platelet Count 248 Thou/mm3 (140-440); RDW Standard Deviation 39.3 fL (35.1-43.9); Red Blood Count 5.16 Miln/mm3 (4.50-5.90); White Blood Count 18.5 Thou/mm3 (3.8-10.6)
[2024-09-02] MEDS: LORazepam 0.5 MG TABLET PO ×2 (08:01→17:15)
[2024-09-02] MEDS: VALSARTAN 80 MG TABLET 160 MG PO (08:02)
[2024-09-02] MEDS: METOPROLOL SUCCINATE XL 25 MG TABCR 50 MG PO ×2 (08:02→20:19)
[2024-09-02] MEDS: amLODIPine BESYLATE 2.5 MG TABLET PO (08:02)
[2024-09-02] MEDS: CEFEPIME INJ 2 GM in SODIUM CHLORIDE 0.9% (Popper) 50 ML IV (08:03)
[2024-09-02] MEDS: NAPH,KPH MBDB 1 PACKET (1.5 GM) PO (08:17)
[2024-09-02] MEDS: VANCOMYCIN/NS 1 GM IVPB 200 ML IV (09:51)
[2024-09-02] MEDS: INSULIN GLARGINE (Lantus) 5 UNIT/0.05 ML (PER 5 UNITS) 15 UNIT SC (09:53)
--- NOTE | 2024-09-02 11:36 | PD.RESPRO ---
Documentation for date of: 09/02/24 Subjective Subjective Interval history: Patient examined at bedside. Overnight patient had continued right-sided facial pain and was given ketorolac 15 mg IV x 1. This morning still complains of severe pain also present in the ear. Very sensitive to touch. Unable to perform otoscope exam. Patient has remained afebrile since admission, vitals stable. Leukocytosis improving to 18 today. OMAR resolved with adequate fluids, creatinine 1.2. Ultrasound soft tissue neck confirms sial adenitis with multiple enlarged lymph nodes, reactive. Will continue with current pain management, blood cultures are pending. Stop cefepime and vancomycin and start patient on ciprofloxacin, metronidazole for anaerobic coverage as well. Patient will need to closely follow-up with ENT at time of discharge. Will continue to closely monitor. Exam Vital Signs Temp Pulse Resp BP Pulse Ox O2 Del Method 96.4 F L 77 18 150/93 H 92 L Room Air 09/02/24 08:00 09/02/24 09:29 09/02/24 09:29 09/02/24 08:02 09/02/24 08:00 09/02/24 08:00 Narrative Exam General: Middle aged male, acute distress from pain, hard time speaking. HEENT: NCAT, No JVD noted. Mucosa dry. Pupils are equal and reactive to light bilaterally, right parotid area inflammed and swollen. Tender to touch. Could not examine inside mouth due to pain. Cardiovascular: Normal S1 and S2. Regular rate and rhythm. Respiratory: Lungs are clear to auscultation bilaterally. No wheezing or crackles heard. Abdomen: Soft, nontender, not distended, normal bowel sounds. Skin: Warm to touch, dry, no rashes noted Musculoskeletal: No gross injuries. Able to move all 4 extremities. No pitting edema Neuro: Alert and oriented x3. No focal neuro deficits. Psych: Normal affect and mood Objective Labs 09/02/24 05:30 09/02/24 05:30 Labs: Laboratory Results - last 24 hr 09/01/24 09/01/24 09/02/24 14:02 22:24 05:30 WBC 18.5 H D RBC 5.16 Hgb 15.4 Hct 44.2 MCV 86 MCH 29.8 MCHC 34.8 RDW Std Deviation 39.3 Plt Count 248 D Neut % (Auto) 77 Lymph % (Auto) 13 [place] % (Auto) 8 Eos % (Auto) 1 Baso % (Auto) 0 Neut # (Auto) 14.2 H Lymph # (Auto) 2.4 [place] # (Auto) 1.5 H Eos # (Auto) 0.1 Baso # (Auto) 0.1 Immature Gran # (Auto) 0.08 H Absolute Nucleated RBC 0.00 Immature Gran % 0 Nucleated RBC % 0 Sodium 132 L Potassium 3.9 Chloride 98 Carbon Dioxide 22.2 Anion Gap 12 BUN 22 Creatinine 1.2 Estim Creat Clear Calc 72.1 eGFR > 60 BUN/Creatinine Ratio 18 Glucose 280 H D Calculated Osmolality 277 Lactic Acid 2.5 H Calcium 9.5 Corrected Calcium 9.5 Phosphorus 2.0 L Magnesium 1.7 Total Bilirubin 0.4 AST 23 ALT 23 Alkaline Phosphatase 103 Total Protein 7.6 Albumin 4.5 Globulin 3.1 Albumin/Globulin Ratio 1.5 Ur Collection Type Clean Catch Urine Color Lt-Yellow Urine Clarity Clear Urine pH 6.0 Ur Specific [place] 1.022 Urine Protein 2+ A Urine Glucose (UA) 4+ A Urine Ketones 1+ A Urine Blood Negative Urine Nitrite Negative Urine Bilirubin Negative Urine Urobilinogen (Auto) Negative Ur Leukocyte Esterase Negative Urine RBC 0 Urine WBC 0 Ur Squamous Epith Cells < 1 Urine Bacteria None Quality Measures Quality Measures none Assessment & Plan Assessment Current Active Medications: Generic Name Dose Route Start Last Admin Trade Name Freq PRN Reason Stop Dose Admin Acetaminophen 650 mg 09/01/24 16:17 Acetaminophen 325 Mg Tablet PO 10/01/24 15:12 Q6H PRN Fever >100.3 or pain Amlodipine Besylate 2.5 mg 09/01/24 15:45 09/02/24 08:02 Amlodipine Besylate 2.5 Mg Tablet PO 10/01/24 15:44 2.5 mg QDAY DANY Administration Dextrose 25 ml 09/02/24 08:36 Dextrose 50%-Water Inj 50 Ml Syringe IV 10/02/24 08:35 Q15MIN PRN BG 50-70 responsive npo pt Dextrose 50 ml 09/02/24 08:36 Dextrose 50%-Water Inj 50 Ml Syringe IV 10/02/24 08:35 Q15MIN PRN BG <50 OR BG <70 & pt unresponsive Enoxaparin Sodium 40 mg 09/02/24 09:00 09/02/24 08:03 Enoxaparin Sod Inj 40 Mg/0.4 Ml Syringe SC 09/16/24 08:59 Not Given QDAY DANY Glucagon 1 mg 09/02/24 08:36 Glucagon Inj 1 Mg Vial IM Q15MIN PRN BG <70, and no IV access Ciprofloxacin/Dextrose 200 mg in 100 mls @ 100 mls/hr 09/02/24 11:35 Cipro Ivpb IV 09/09/24 11:34 Q12HR DANY Metronidazole 500 mg in 100 mls @ 200 mls/hr 09/02/24 11:35 Flagyl 500 Mg Iv IV 09/09/24 11:34 Q8HR [facility] Insulin Glargine 15 unit 09/02/24 09:00 09/02/24 09:53 Insulin Glargine (Lantus) 5 Unit/0.05 Ml (Per 5 Units) SC 10/02/24 08:59 15 unit QDAY DANY Administration Insulin Human Lispro 0 unit 09/02/24 11:30 Insulin Lispro (Admelog) 1 Unit/0.01 Ml Unit SC 10/02/24 11:29 ACHS [facility] Protocol Metoprolol Succinate 50 mg 09/01/24 21:00 09/02/24 08:02 Metoprolol Succinate Xl 25 Mg Tabcr PO 10/01/24 20:59 50 mg BID DANY Administration Morphine Sulfate 1 mg 09/01/24 15:18 09/02/24 04:36 Morphine Sulf Inj 10 Mg/Ml Vial IVP 1 mg Q4HR PRN Administration pain 6-10 Ondansetron HCl 4 mg 09/01/24 15:13 Ondansetron Inj 2 Mg/Ml Inj 2 Ml IV 10/01/24 15:12 Q6H PRN NAUSEA OR VOMITING Protocol Valsartan 160 mg 09/01/24 15:45 09/02/24 08:02 Valsartan 80 Mg Tablet PO 10/01/24 15:44 160 mg QDAY [facility] Administration Plan Sina Mccann is 59 yr male with PMH of hypertension, [id number]-apgnjqdlh type 2 diabetes, and hyperlipidemia presenting to ED due to right-sided facial pain parotid area since the past 3 days. Ear pain progressed to cheek and jaw pain. Endorses dry mouth, chills, sweats, decreased appetite, dysuria. Patient will be admitted for treatment of sialadenitis. #Sepsis 2/2 Severe sialadenitis #Leukocytosis DDx: Stone blockage, Sjogren's syndrome, poor oral hygiene, anticholinergics Started as ear pain 3 days ago and progressively worsened. Patient has difficulty swallowing, tender to touch, dry mouth, sweats, chills. CT soft tissue neck confirmed severe sialadenitis involving the right parotid and right submandibular gland with reactive lymphadenopathy. U/s soft tissue neck: Significant cervical LAD as noted on CT. Likely reactive to condition. Patient meets SIRS/4, sepsis alert called. Sepsis ruled in with evidence of endorgan damage as evidenced with OMAR. Leukocytosis a WBC 24, lactic acid elevated 3.7, Pro-Jonathan elevated 0.61, afebrile on admission. -stop Cefepime 2 g BID and vancomycin (09/01-) -start IV ciprofloxacin 200mg TID + IV metronidazole 500mg TID ? Pain management with ketorolac 30 mg IV and morphine 1 mg IV q4hr PRN - Blood cultures pending ? Full liquid diet ? Follow-up ultrasound soft tissue head and neck #OMAR-resolved Most likely pre renal in setting of poor oral intake past few days. Cr at admission 1.5. (Cr baseline appears to be 1.2) -x1 more bolus NS for total of two -avoid nephrotoxic agents -daily CMP #Ajg-cmangkd-zzdenkpqj type 2 diabetes, poorly controlled On admission initial glucose 391. Last A1c 9.0 on July 2022. Patient takes glipizide 5 mg daily, metformin 500mg BID for diabetes at home. A1c on this admission--12.8 -Held home medications -Bedside blood glucose checks ACHS -glargine 15 units -Insulin lispro sliding scale -Carb consistent low diet #Hx HTN #Hx HLD ? Resumed amlodipine 2.5 mg daily ? Metoprolol succinate 50 mg p.o. BID ? Valsartan 160 mg daily Health maintenance: Dispo: med surg, abx. pain mgmt FEN: full liquid DVT prophylaxis: Lovenox 40 CODE STATUS: Full code The patient's management plan was discussed with my attending physician Dr. Birmingham. Kathryn Mcnally, PGY-1 Patient's vitals, labs, imaging and chart reviewed. Patient interviewed and examined at bedside accompanied by his .Patient has no acute complaints at this time. Patient still c/o of significant right sided facial pain and swelling consistent with imaging findings of sialadenitis. Will escalate abx coverage from vancomycin and cefepime to ciprofloxcin and metronidazole for coverage of anareobic bugs. Patient's pain responded well to morphine. Will consider consulting ENT should symptoms worsen. I discussed with and supervised the biology internship physician who took care of this patient. I personally saw and examined the patient and discussed the assessment and plan with the entire medicine team, including my attending Dr. Dawkins. I agree with the assessment and plan as documented above. Say Lares M.D. Internal Medicine PGY-3 Attending Provider Attestation/Addendum 59-year-old diabetic male patient with sepsis, sialoadenitis, complains of severe right facial pain and swelling. Patient's antibiotics will be changed to ciprofloxacin and metronidazole starting today. Discussed with housestaff.
[2024-09-02] MEDS: metroNIDAZOLE/NS 500 MG IVPB 500 MG/100 ML BAG 200 MG IV ×2 (11:59→21:23)
[2024-09-02] MEDS: INSULIN LISPRO (AdmeLOG) 1 UNIT/0.01 ML UNIT SC ×3 (11:59→20:18)
[2024-09-02] MEDS: CIPROFLOXACIN/D5w 200 MG IVPB 200 MG/100 ML BAG 100 MG IV ×2 (13:31→20:18)
[2024-09-02] MEDS: KETOROLAC INJ 30 MG/ML VIAL IVP ×2 (17:16→23:31)
[2024-09-02] MEDS: MORPHINE SULF INJ 10 MG/ML VIAL 2 MG IVP (19:59)
[2024-09-02] MEDS: CHLORHEXIDINE MOUTHWASH 0.12% UDC 15 ML PO (20:18)
[2024-09-02 21:35] LABS: Vancomycin,Trough 11.3 mcg/mL (5.0-10.0)
[2024-09-03] VITALS (10 sets, daily range): BP systolic 119–167; BP diastolic 67–98; PULSE 61–81; RESP 18–97; TEMP 36.5–36.8; O2SAT 93–98
[2024-09-03] MEDS: VANCOMYCIN/NS 1 GM IVPB 200 ML IV ×3 (02:08→21:54)
[2024-09-03] MEDS: MORPHINE SULF INJ 10 MG/ML VIAL 2 MG IVP (02:19)
[2024-09-03] MEDS: ONDANSETRON INJ 2 MG/ML INJ 2 ML 4 MG IV ×2 (04:15→16:04)
[2024-09-03 05:58] LABS: Basophils # (Auto) 0.1 Thou/mm3 (0.0-0.2); Basophils % (Auto) 1 % (0-2.5); Eosinophils # (Auto) 0.2 Thou/mm3 (0.0-0.5); Eosinophils % (Auto) 2 % (0-10); Hematocrit 43.8 % (41.0-53.0); Hemoglobin 15.4 g/dL (13.5-16.0); Immature Granulocytes % (Auto) 1 % (0-0); Immature Granulocytes Auto 0.07 Thou/mm3 (0.00-0.00); Lymphocytes # (Auto) 2.9 Thou/mm3 (1.0-4.8); Lymphocytes % (Auto) 22 % (10-50); Mean Corpuscular HGB Conc 35.2 g/dl (31.0-37.0); Mean Corpuscular Hemoglobin 30.1 pg (25.0-35.0); Mean Corpuscular Volume 86 fL (80-100); Monocytes # (Auto) 1.2 Thou/mm3 (0.0-0.8); Monocytes % (Auto) 9 % (0-12); Neutrophils # (Auto) 8.5 Thou/mm3 (1.8-7.7); Neutrophils % (Auto) 66 % (37-80); Nucleated Red Blood Cell % 0 /100 WBC (0); Platelet Count 259 Thou/mm3 (140-440); RDW Standard Deviation 38.4 fL (35.1-43.9); Red Blood Count 5.11 Miln/mm3 (4.50-5.90); White Blood Count 12.9 Thou/mm3 (3.8-10.6)
[2024-09-03] MEDS: KETOROLAC INJ 30 MG/ML VIAL IVP ×2 (06:01→13:12)
[2024-09-03] MEDS: metroNIDAZOLE/NS 500 MG IVPB 500 MG/100 ML BAG 200 MG IV ×3 (06:01→21:01)
[2024-09-03 06:05] LABS: Alanine Aminotransferase 23 U/L (10-49); Albumin, Serum 4.5 gm/dL (3.5-5.0); Albumin/Globulin Ratio 1.5 (1.2-2.2); Alkaline Phosphatase 99 U/L (46-116); Anion Gap 10 (7-16); Aspartate Amino Transferase 26 U/L (0-34); BUN/Creatinine Ratio 20 Ratio (12-20); Bilirubin,Total 0.4 mg/dL (0.3-1.2); Blood Urea Nitrogen 24 mg/dL (9-23); Calcium 9.4 mg/dL (8.3-10.6); Calcium (Corrected) 9.4 mg/dL (8.5-10.1); Carbon Dioxide 23.7 mMol/L (20.0-31.0); Chloride 97 mMol/L (98-107); Creatinine (Component) 1.2 mg/dL (0.6-1.3); Estimated Creatinine Clearance 72.1 mL/min (>60); Globulin 3.1 gm/dL (2.3-3.5); Glucose 318 mg/dL (74-106); Osmolality,Calculated 278 (275-295); Potassium 3.6 mMol/L (3.4-5.1); Sodium 131 mMol/L (136-145); Total Protein 7.6 gm/dL (5.7-8.2); eGFR > 60 See Note
[2024-09-03] MEDS: INSULIN LISPRO (AdmeLOG) 1 UNIT/0.01 ML UNIT SC ×4 (07:54→20:01)
[2024-09-03] MEDS: VALSARTAN 80 MG TABLET 160 MG PO (08:11)
[2024-09-03] MEDS: METOPROLOL SUCCINATE XL 25 MG TABCR 50 MG PO (08:11)
[2024-09-03] MEDS: amLODIPine BESYLATE 2.5 MG TABLET PO (08:12)
[2024-09-03] MEDS: CHLORHEXIDINE MOUTHWASH 0.12% UDC 15 ML PO ×2 (08:14→20:01)
[2024-09-03] MEDS: INSULIN LISPRO (AdmeLOG) 1 UNIT/0.01 ML UNIT 2 UNIT SC ×3 (08:16→16:58)
[2024-09-03] MEDS: INSULIN GLARGINE (Lantus) 5 UNIT/0.05 ML (PER 5 UNITS) 20 UNIT SC (08:17)
[2024-09-03] MEDS: CIPROFLOXACIN/D5w 200 MG IVPB 200 MG/100 ML BAG 100 MG IV ×2 (08:20→20:01)
[2024-09-03] MEDS: HYDROmorphone INJ 2 MG/ML VIAL 0.25 MG IVP ×3 (08:32→22:03)
--- NOTE | 2024-09-03 08:50 | PCS.ST ---
Follow up note: Pending ENT (Ear, Nose, and Throat) recommendations. On IV antibiotic.
[2024-09-03] MEDS: LORazepam 0.5 MG TABLET PO ×2 (10:12→21:01)
--- NOTE | 2024-09-03 10:35 | CHAP ---
Patient was visited by the Spiritual Care Volunteer who prayed for them. (Volunteer was in the hospital from 09:00-10:35).
--- NOTE | 2024-09-03 12:13 | PC.SS ---
SS met with patient regarding his d/c plan.? Pt is alert/oriented.? Pt was admitted for Parotid Gland Swelling.? Pt confirmed demographic and contact information is correct on facesheet.? Pt resides with .? Pt ambulates independently without assistance or DME.? Pt is ok with all ADLs.? Patient?s pharmacy of choice is [facility] [address] Pt named his , Salima Aranda medical decision maker if he is unable.? Patient?s choice is to return home upon d/c.? Pt does not have an advance directive, SS offered, and pt declined.? Pt states he is diabetic, has gluocemter, and test strip.? Pt states he takes oral insulin for his diabetes.? Pt states he had tele conference with PCP on Tuesday.? will provide transportation. D/C plan:? Return home Next of Kin:? Salima Aranda, , phone# [phone] PCP:? [facility] Address:? Correct on facesheet
--- NOTE | 2024-09-03 15:25 | ESPR_ITS ---
Documentation for date of: 09/03/24 Subjective Subjective Interval history: Patient examined at bedside. Overnight patient was started on IV vancomycin after 1 of 2 blood culture positive for GPC. He continues to complain of severe right sided facial pain now migrating to ear. Says pain meds are helping. Patient is expressing frustration and requesting to see ENT for evaluation. Patient's fax sheet was sent to Dr. Izaguirre. Over the phone recommendations to start steroids and continue with current antibiotics. No indication for incision and drainage if imaging had no report of abscess. Most likely the hard area is LAD in right parotid and right submandibular gland. Today patient stated that he has PMH of psoriasis for which he takes Skyrizi (MAB) since beginning of this year. Also had rhinoplasty in with removal of 6 nasal polyps. The procedure resulted in a MRSA sinus infection. May transfer patient if ENT unable to evaluate inpatient. Leukocytosis is improving to 13, morning blood sugar 318. Insulin adjusted will continue to uptitrate. Added lispro 2 units TID with meals based off of sliding scale. Will start Decadron 4mg q6hr per ENT. continue with vancomycin, metronidazole, ciprofloxacin. Exam Vital Signs Temp Pulse Resp BP Pulse Ox O2 Del Method 97.7 F 71 18 162/98 H 97 Room Air 09/03/24 12:00 09/03/24 12:00 09/03/24 12:00 09/03/24 12:00 09/03/24 12:00 09/03/24 12:00 Narrative Exam General: Middle aged male, acute distress from pain, hard time speaking. HEENT: NCAT, No JVD noted. Mucosa dry. Pupils are equal and reactive to light bilaterally, right parotid area inflammed and swollen. Tender to touch. No noticeable pus inside mouth, enlarged LN in parotid, posterior auricular area. Cardiovascular: Normal S1 and S2. Regular rate and rhythm. Respiratory: Lungs are clear to auscultation bilaterally. No wheezing or crackles heard. Abdomen: Soft, nontender, not distended, normal bowel sounds. Skin: Warm to touch, dry, no rashes noted Musculoskeletal: No gross injuries. Able to move all 4 extremities. No pitting edema Neuro: Alert and oriented x3. No focal neuro deficits. Psych: Normal affect and mood Objective Labs 09/03/24 04:39 09/03/24 04:39 Labs: Laboratory Results - last 24 hr 09/02/24 09/03/24 20:40 04:39 WBC 12.9 H D RBC 5.11 Hgb 15.4 Hct 43.8 MCV 86 MCH 30.1 MCHC 35.2 RDW Std Deviation 38.4 Plt Count 259 Neut % (Auto) 66 Lymph % (Auto) 22 [place] % (Auto) 9 Eos % (Auto) 2 Baso % (Auto) 1 Neut # (Auto) 8.5 H Lymph # (Auto) 2.9 [place] # (Auto) 1.2 H Eos # (Auto) 0.2 Baso # (Auto) 0.1 Immature Gran # (Auto) 0.07 H Absolute Nucleated RBC 0.00 Immature Gran % 1 H Nucleated RBC % 0 Sodium 131 L Potassium 3.6 Chloride 97 L Carbon Dioxide 23.7 Anion Gap 10 BUN 24 H Creatinine 1.2 Estim Creat Clear Calc 72.1 eGFR > 60 BUN/Creatinine Ratio 20 Glucose 318 H Calculated Osmolality 278 Calcium 9.4 Corrected Calcium 9.4 Total Bilirubin 0.4 AST 26 ALT 23 Alkaline Phosphatase 99 Total Protein 7.6 Albumin 4.5 Globulin 3.1 Albumin/Globulin Ratio 1.5 Vancomycin Trough 11.3 H Quality Measures Quality Measures none Assessment & Plan Assessment Current Active Medications: Generic Name Dose Route Start Last Admin Trade Name Freq PRN Reason Stop Dose Admin Acetaminophen 650 mg 09/02/24 17:00 Acetaminophen 325 Mg Tablet PO 10/01/24 15:12 Q6H PRN Fever >100.3 or pain Amlodipine Besylate 2.5 mg 09/01/24 15:45 09/03/24 08:12 Amlodipine Besylate 2.5 Mg Tablet PO 10/01/24 15:44 2.5 mg QDAY DANY Administration Chlorhexidine Gluconate 15 ml 09/02/24 21:00 09/03/24 08:14 Chlorhexidine Mouthwash 0.12% Udc 15 Ml PO 10/02/24 20:59 15 ml BID DANY Administration Dextrose 25 ml 09/02/24 08:36 Dextrose 50%-Water Inj 50 Ml Syringe IV 10/02/24 08:35 Q15MIN PRN BG 50-70 responsive npo pt Dextrose 50 ml 09/02/24 08:36 Dextrose 50%-Water Inj 50 Ml Syringe IV 10/02/24 08:35 Q15MIN PRN BG <50 OR BG <70 & pt unresponsive Enoxaparin Sodium 40 mg 09/02/24 09:00 09/03/24 08:20 Enoxaparin Sod Inj 40 Mg/0.4 Ml Syringe SC 09/16/24 08:59 Not Given QDAY DANY Glucagon 1 mg 09/02/24 08:36 Glucagon Inj 1 Mg Vial IM Q15MIN PRN BG <70, and no IV access Hydromorphone HCl 0.25 mg 09/02/24 16:55 09/03/24 08:32 Hydromorphone Inj 2 Mg/Ml Vial IVP 09/07/24 16:54 0.25 mg Q4HR PRN Administration Pain 7-10 Ciprofloxacin/Dextrose 200 mg in 100 mls @ 100 mls/hr 09/02/24 11:35 09/03/24 08:20 Cipro Ivpb IV 09/09/24 11:34 100 mls/hr Q12HR DANY Administration Metronidazole 500 mg in 100 mls @ 200 mls/hr 09/02/24 11:35 09/03/24 13:12 Flagyl 500 Mg Iv IV 09/09/24 11:34 200 mls/hr Q8HR DANY Administration Vancomycin/Sodium Chloride 200 mls @ 120 mls/hr 09/03/24 10:00 09/03/24 10:12 Vancomycin/Ns 1 Gm Ivpb IV 09/10/24 09:59 120 mls/hr Q12H DANY Administration Insulin Glargine 20 unit 09/03/24 09:00 09/03/24 08:17 Insulin Glargine (Lantus) 5 Unit/0.05 Ml (Per 5 Units) SC 10/03/24 08:59 20 unit QDAY DANY Administration Insulin Human Lispro 0 unit 09/02/24 11:30 09/03/24 11:40 Insulin Lispro (Admelog) 1 Unit/0.01 Ml Unit SC 10/02/24 11:29 4 unit ACHS DANY Administration Protocol Insulin Human Lispro 2 unit 09/03/24 08:00 09/03/24 11:41 Insulin Lispro (Admelog) 1 Unit/0.01 Ml Unit SC 10/03/24 07:59 2 unit TIDWM DANY Administration Ketorolac Tromethamine 30 mg 09/02/24 16:57 09/03/24 13:12 Ketorolac Inj 30 Mg/Ml Vial IVP 09/07/24 16:56 30 mg Q6HR PRN Administration PAIN SCALE 4-5 Lorazepam 0.5 mg 09/02/24 16:57 09/03/24 10:12 Lorazepam 0.5 Mg Tablet PO 09/07/24 16:56 0.5 mg Q6HR PRN Administration ANXIETY Metoprolol Succinate 50 mg 09/01/24 21:00 09/03/24 08:11 Metoprolol Succinate Xl 25 Mg Tabcr PO 10/01/24 20:59 50 mg BID DANY Administration Morphine Sulfate 2 mg 09/02/24 16:56 09/03/24 02:19 Morphine Sulf Inj 10 Mg/Ml Vial IVP 09/06/24 15:17 2 mg Q4HR PRN Administration pain 6-10 Ondansetron HCl 4 mg 09/01/24 15:13 09/03/24 04:15 Ondansetron Inj 2 Mg/Ml Inj 2 Ml IV 10/01/24 15:12 4 mg Q6H PRN Administration NAUSEA OR VOMITING Protocol Pharmacy Consult 1 each 09/03/24 01:55 Vancomycin Pharmacy To Dose 1 Each Each IV 10/03/24 01:54 QDAY PRN RX Valsartan 160 mg 09/01/24 15:45 09/03/24 08:11 Valsartan 80 Mg Tablet PO 10/01/24 15:44 160 mg QDAY DANY Administration Plan Sina Mccann is 59 yr male with PMH of hypertension, Exm-hiidatj-jjdwufrqi type 2 diabetes, and hyperlipidemia presenting to ED due to right-sided facial pain parotid area since the past 3 days. Ear pain progressed to cheek and jaw pain. Endorses dry mouth, chills, sweats, decreased appetite, dysuria. Patient will be admitted for treatment of sialadenitis. #Sepsis 2/2 Severe sialadenitis #Leukocytosis DDx: Stone blockage, Sjogren's syndrome, poor oral hygiene, anticholinergics Started as ear pain 3 days ago and progressively worsened. Patient has difficulty swallowing, tender to touch, dry mouth, sweats, chills. CT soft tissue neck confirmed severe sialadenitis involving the right parotid and right submandibular gland with reactive lymphadenopathy. U/s soft tissue neck: Significant cervical LAD as noted on CT. Likely reactive to condition. Patient meets SIRS/4, sepsis alert called. Sepsis ruled in with evidence of endorgan damage as evidenced with OMAR. Leukocytosis a WBC 24, lactic acid elevated 3.7, Pro-Jonathan elevated 0.61, afebrile on admission. Cefepime 2 g BID and vancomycin (09/01-) - IV ciprofloxacin 200mg TID + IV metronidazole 500mg TID (09/02-) -added vancomycin for emperic GPC tx ? Pain management with ketorolac 30 mg IV and morphine 1 mg IV q4hr PRN - final Blood cultures pending ? Full liquid diet -start dexamethasone 4mg q6hr (09/03- -ENT follow up #OMAR-resolved Most likely pre renal in setting of poor oral intake past few days. Cr at admission 1.5. (Cr baseline appears to be 1.2) -x1 more bolus NS for total of two -avoid nephrotoxic agents -daily CMP #Nhg-ggvaibq-huxsjebmq type 2 diabetes, poorly controlled On admission initial glucose 391. Last A1c 9.0 on July 2022. Patient takes glipizide 5 mg daily, metformin 500mg BID for diabetes at home. A1c on this admission--12.8 -Held home medications -Bedside blood glucose checks ACHS -glargine 20 units -2 units lispro TID WM -Insulin lispro sliding scale -Carb consistent low diet #Hx HTN #Hx HLD #Hx psoriasis ? Resumed amlodipine 2.5 mg daily ? Metoprolol succinate 50 mg p.o. BID ? Valsartan 160 mg daily -Skyrizi for psoriasis, Takes once every 3 months Health maintenance: Dispo: med surg, abx. pain mgmt FEN: full liquid DVT prophylaxis: Lovenox 40 CODE STATUS: Full code The patient's management plan was discussed with my attending physician Dr. Birmingham. Kathryn Mcnally, PGY-1 LEELEE discussed with and supervised the bakery pastry internship physician who took care of this patient. I personally saw and examined the patient and discussed the assessment and plan with the entire medicine team, including my attending Dr. Valencia SCHROEDER. I agree with the assessment and plan as documented above. Patient interviewed and examined at bedside this a.m. Events include patient's blood cultures positive for GPC for which he was started on vancomycin. Patient still endorses significant pain in his right mandibular area. Patient's pain is somewhat controlled with morphine however still at times can be unbearable per the patient. Contacted Dr. Izaguirre ENT, who recommended to continue with the current regimen of antibiotics, which include ciprofloxacin and metronidazole and vancomycin. If patient's symptoms do not improve we will consider transferring. Of note the patient's glucose levels are still markedly elevated. Will continue to titrate insulin and adjust based off a.m. labs. Say Lares M.D. Internal Medicine PGY-3 Attending Provider Attestation/Addendum Patient with poorly controlled diabetes, admitted for sepsis, sialadenitis. Patient stated that he has psoriasis using Skyrizi. The patient was referred to ENT for evaluation. Steroid was recommended. Will continue current antibiotic treatment. Give adequate pain control. Discussed with housestaff
[2024-09-03] MEDS: DEXAMETHASONE SOD PHOS INJ 4 MG/ML VIAL IV ×2 (15:50→23:47)
[2024-09-04] VITALS (7 sets, daily range): BP systolic 124–183; BP diastolic 64–106; PULSE 69–92; RESP 17–96; TEMP 35.8–36.8; O2SAT 93–98
[2024-09-04] MEDS: HYDROmorphone INJ 2 MG/ML VIAL 0.25 MG IVP (02:32)
[2024-09-04] MEDS: DEXAMETHASONE SOD PHOS INJ 4 MG/ML VIAL IV ×2 (05:16→11:57)
[2024-09-04] MEDS: metroNIDAZOLE/NS 500 MG IVPB 500 MG/100 ML BAG 200 MG IV (05:16)
[2024-09-04] MEDS: LORazepam 0.5 MG TABLET PO (05:25)
[2024-09-04 06:08] LABS: Basophils % (Auto) 0 % (0-2.5); Eosinophils % (Auto) 0 % (0-10); Hematocrit 39.9 % (41.0-53.0); Hemoglobin 14.2 g/dL (13.5-16.0); Immature Granulocytes % (Auto) 1 % (0-0); Immature Granulocytes Auto 0.05 Thou/mm3 (0.00-0.00); Lymphocytes # (Auto) 1.2 Thou/mm3 (1.0-4.8); Lymphocytes % (Auto) 12 % (10-50); Mean Corpuscular HGB Conc 35.6 g/dl (31.0-37.0); Mean Corpuscular Hemoglobin 29.9 pg (25.0-35.0); Mean Corpuscular Volume 84 fL (80-100); Monocytes # (Auto) 0.3 Thou/mm3 (0.0-0.8); Monocytes % (Auto) 3 % (0-12); Neutrophils # (Auto) 8.4 Thou/mm3 (1.8-7.7); Neutrophils % (Auto) 84 % (37-80); Nucleated Red Blood Cell % 0 /100 WBC (0); Platelet Count 291 Thou/mm3 (140-440); Red Blood Count 4.75 Miln/mm3 (4.50-5.90)
[2024-09-04 06:36] LABS: Alanine Aminotransferase 35 U/L (10-49); Albumin, Serum 4.2 gm/dL (3.5-5.0); Albumin/Globulin Ratio 1.6 (1.2-2.2); Alkaline Phosphatase 85 U/L (46-116); Anion Gap 8 (7-16); Aspartate Amino Transferase 44 U/L (0-34); BUN/Creatinine Ratio 20 Ratio (12-20); Bilirubin,Total 0.3 mg/dL (0.3-1.2); Blood Urea Nitrogen 20 mg/dL (9-23); Calcium 9.3 mg/dL (8.3-10.6); Calcium (Corrected) 9.3 mg/dL (8.5-10.1); Carbon Dioxide 24.2 mMol/L (20.0-31.0); Chloride 99 mMol/L (98-107); Estimated Creatinine Clearance 86.6 mL/min (>60); Globulin 2.7 gm/dL (2.3-3.5); Glucose 266 mg/dL (74-106); Osmolality,Calculated 274 (275-295); Potassium 4.4 mMol/L (3.4-5.1); Sodium 131 mMol/L (136-145); Total Protein 6.9 gm/dL (5.7-8.2); eGFR > 60 See Note
[2024-09-04] MEDS: INSULIN LISPRO (AdmeLOG) 1 UNIT/0.01 ML UNIT SC ×2 (07:39→11:52)
[2024-09-04] MEDS: INSULIN LISPRO (AdmeLOG) 1 UNIT/0.01 ML UNIT 2 UNIT SC (07:40)
[2024-09-04] MEDS: VALSARTAN 80 MG TABLET 160 MG PO (08:48)
[2024-09-04] MEDS: amLODIPine BESYLATE 2.5 MG TABLET PO (08:49)
[2024-09-04] MEDS: METOPROLOL SUCCINATE XL 25 MG TABCR 50 MG PO (08:49)
[2024-09-04] MEDS: CHLORHEXIDINE MOUTHWASH 0.12% UDC 15 ML PO (08:50)
[2024-09-04] MEDS: INSULIN GLARGINE (Lantus) 5 UNIT/0.05 ML (PER 5 UNITS) 30 UNIT SC (08:58)
[2024-09-04] MEDS: ENOXAPARIN SOD INJ 40 MG/0.4 ML SYRINGE SC (09:00)
[2024-09-04] MEDS: CIPROFLOXACIN/D5w 200 MG IVPB 200 MG/100 ML BAG 100 MG IV (09:01)
[2024-09-04 09:38] LABS: Vancomycin,Trough 11.9 mcg/mL (5.0-10.0)
[2024-09-04] MEDS: VANCOMYCIN/NS 1 GM IVPB 200 ML IV (10:25)
[2024-09-04] MEDS: INSULIN LISPRO (AdmeLOG) 1 UNIT/0.01 ML UNIT 3 UNIT SC (11:54)
[2024-09-04 12:14] LABS: Glucose Estimated Average 260 mg/dL (80-131); Hemoglobin A1C 10.7 % Hgb (4.8-6.0)
--- NOTE | 2024-09-04 20:11 | PD.RESDS ---
Planned Discharge Date 09/04/24 DS: Providers Provider Date of admission: 09/01/24 15:13 Primary care physician: ANNETTE Francis Admitting Provider: Melvin Birmingham MD Attending Provider on Admission: Mahendra Stubbs MD Attending Provider on DC: Mahendra Stubbs MD Discharging Provider: Mahendra Stubbs MD DS: Diagnosis Problem List Completed Was Problem List Reviewed/Reconciled?: Yes Hospital Course Hospital Course Hospital course: Reason for hospitalization: sialadenitis Sina Mccann is 59 yr male with PMH of hypertension, Qbl-niaygzr-yxcaqxrnr type 2 diabetes, psoriasis on Mab, previous MRSA sinus infection s/p rhinoplasty, and hyperlipidemia who presented to [facility] ED on 09/01/24 due to right-sided facial pain parotid area since 3 days before admission. Ear pain progressed to cheek and jaw pain. Endorsed dry mouth, chills, sweats, decreased appetite, pain with swallowing. Their was noticeable right side facial swelling. Patient was admitted for treatment of sepsis due to sialadenitis. Initially afebrile, tachycardic 125, elevated WBC (24), glucose 391, LA elevated (3.7), pro shaun elevated (0.61), elevated Cr 1.5, and A1c 10.7. CT soft tissue neck confirmed severe sialadenitis involving the right parotid and right submandibular gland with reactive lymphadenopathy. He was on ciprofloxacin and metronidazole. OMAR resolved with adequate fluids. Blood cultures 1/2 were GPC positive. Vancomycin was started empiraclly. He decided to leave A. ENT Dr. Izaguirre was contacted for recommendations. IV Steroids were started accordingly. However, patient decided to leave AMA after improvement of symptoms. He was encouraged to stay for final blood culture results but still decided to leave. Further recommendations were given as below. Discharge Recommendations: Resume previous medications. Complete metronidazole, ciprofloxacin, and steroid taper pack as directed. Follow up with PCP in 1 week. Follow up with ENT in 1 week. Hospital Diagnoses: #Sepsis 2/2 Severe sialadenitis #Leukocytosis #OMAR-resolved #Bib-enjwqvd-kyabymkok type 2 diabetes, poorly controlled #Hx HTN #Hx HLD The patient's management plan was discussed with my attending physician Dr. Stubbs. Kathryn Mcnally MD, PGY-1 Time Spent with Patient Time attestation: Total time spent providing and/or coordinating discharge services: Time spent: Greater than 30 minutes Exam Vital Signs Temp Pulse Resp BP Pulse Ox O2 Del Method 98.3 F 74 18 176/102 H 98 Room Air 09/04/24 12:00 09/04/24 12:00 09/04/24 12:00 09/04/24 12:00 09/04/24 12:00 09/04/24 12:00 Narrative Exam General: Middle aged male, acute distress from pain, hard time speaking. HEENT: NCAT, No JVD noted. Mucosa dry. Pupils are equal and reactive to light bilaterally, right parotid area inflammed and swollen. Tender to touch. No noticeable pus inside mouth, enlarged LN in parotid, posterior auricular area. Cardiovascular: Normal S1 and S2. Regular rate and rhythm. Respiratory: Lungs are clear to auscultation bilaterally. No wheezing or crackles heard. Abdomen: Soft, nontender, not distended, normal bowel sounds. Skin: Warm to touch, dry, no rashes noted Musculoskeletal: No gross injuries. Able to move all 4 extremities. No pitting edema Neuro: Alert and oriented x3. No focal neuro deficits. Psych: Normal affect and mood Discharge Plan Plan Patient Disposition: Left Against Medical Advice Prescriptions/Referrals Prescriptions/Med Rec: New prednisolone 5 mg (21 tabs) tablets,dose pack 5 mg PO QDAY Qty: 21 0RF ciprofloxacin HCl 250 mg tablet 250 mg PO BID 5 Days Qty: 10 0RF metronidazole 500 mg tablet 500 mg PO Q8H 5 Days Qty: 15 0RF Continued metoprolol succinate [Toprol XL] 50 MG tablet extended release 24 hr 50 mg PO BID Qty: 0 Metformin Hcl 1,000 MG tablet 0.5 tab PO BID Qty: 0 fenofibrate 54 mg tablet 120 mg PO QDAY Patient Comments: TAKE 1 TABLET BY MOUTH EVERY DAY valsartan 160 mg tablet 160 mg PO QDAY amlodipine 2.5 mg tablet 2.5 mg PO QDAY Patient Comments: TAKE 1 TABLET BY MOUTH EVERY DAY Rybelsus 7 mg tablet 7 mg PO QDAY tamsulosin 0.4 mg capsule 0.4 mg PO Q24H Patient Comments: TAKE 1 CAPSULE BY MOUTH EVERY DAY Jardiance 25 mg tablet 25 mg PO QDAY gemfibrozil 600 mg tablet 600 mg PO QDAY famotidine 20 mg tablet 20 mg PO QDAY Patient Comments: TAKE 1 TABLET BY MOUTH EVERY DAY diclofenac sodium 75 mg tablet,delayed release (DR/EC) 75 mg PO QDAY atorvastatin 20 mg tablet 20 mg PO QDAY pregabalin 50 mg capsule 50 mg PO QDAY Patient Comments: TAKE 1 CAPSULE BY MOUTH THREE TIMES A DAY FOR 30 DAYS glipizide 5 mg tablet extended release 24hr 5 mg PO QDAY Patient Comments: TAKE 1 TABLET BY MOUTH EVERY DAY Referrals: Lisa Stanford FNP [Primary Care Provider] - Patient/Caregiver Discharge Instructions Other Discharge Activity Instructions:: Resume previous medications. Complete metronidazole, ciprofloxacin, and steroid taper pack as directed. Follow up with PCP in 1 week. Follow up with ENT in 1 week. Print Language: Urdu Quality Discharge Quality Measures VTE prophylaxis MD Attestestation MD Attestation I have examined the patient, reviewed labs and imaging findings, discussed the case with the resident(s), and reviewed entered orders. I agree with the plan of care as outlined in this note, with these additional summaries/recommendations: Patient seen at bedside. Patient has decided to leave AGAINST MEDICAL ADVICE because he has anxiety and does not want to be in the hospital any longer. He has normal mental status and adequate capacity to make medical decisions. The patient refuses further hospital admission and wants to be discharged. The risks have been explained to patient including progression of bacteremia/severe sialadenitis resulting in worsening illness, respiratory compromise, chronic pain, permanent disability and even . Patient was advised he should remain hospitalized for blood culture results as they are preliminarily showing GPC. Patient understands the risks and still wishes to leave AGAINST MEDICAL ADVICE. The patient showed good understanding. Patient had the opportunity ask questions about their medical conditions. Patient was treated to the extent that he would allow and knows that he may return for care at any time. Patient was encouraged to follow-up with his primary care provider as soon as possible and he is in agreement. Course of steroids and antibiotics sent to patient's pharmacy. Patient left AGAINST MEDICAL ADVICE 09/04/2024. Time Spent: [address] Enoc MD
[2024-09-06 17:51] LABS: (1-3)-B-D-glucan* <31 pg/mL
[2024-09-07 06:50] LABS: Interpretation NEGATIVE
== END 2024-09-04 12:56 | disposition left against medical advice (07) | DRG 872 ==
LOC: SERX 14:15 → SERHOLD 15:54 → S3NX 18:55
PROVIDERS: Nurse Practitioner Family; Admitting Provider Internal Medicine; Emergency Provider Emergency Medicine; PCP Nurse Practitioner; Visit Provider Student in an Organized Health Care Education/Training Program
DX: A41.9 Sepsis, unspecified organism (principal); N17.9 Acute kidney failure, unspecified; K11.20 Sialoadenitis, unspecified; E11.65 Type 2 diabetes mellitus with hyperglycemia; R65.20 Severe sepsis without septic shock; L40.9 Psoriasis, unspecified; I10 Essential (primary) hypertension; E78.5 Hyperlipidemia, unspecified; Z86.14 Personal history of Methicillin resistant Staphylococcus aureus infection; Z53.29 Procedure and treatment not carried out because of patient's decision for other reasons; Z79.84 Long term (current) use of oral hypoglycemic drugs; Z79.899 Other long term (current) drug therapy; Z91.040 Latex allergy status; Z88.5 Allergy status to narcotic agent; Z88.0 Allergy status to penicillin
CPT/HCPCS: 36415; 70450; 70490; 76536; 80053; 80202; 81001; 83036; 83605; 83735; 84100; 84145; 85025; 86140; 87040; 87077; 87081; 87186; 87449; 87811; 99285; J0692; J0696; J0744; J1100; J1650; J1815; J1885; J2060; J2270; J2405; J3010; J3370; J3490; J7030; A9270; J1836

== ENCOUNTER → 2024-11-15 | Outpatient (CLI) | payer BC, SELFPAY ==
--- NOTE | 2024-11-15 16:03 | XR_ITS ---
Examination: Ultrasound soft tissue neck TECHNIQUE: Carpenter scale sonographic images soft tissue neck Date and time: November 15, 2024 1657 hours INDICATIONS: Palpable lumps in the upper right neck note is beginning 4 months ago FINDINGS: Upper right neck solid nodule 7 x 7 mm and 6 x 7 mm, multiple lymph nodes in the soft tissue, the largest 2.9 x 1.1 x 1.2 cm IMPRESSION: Significant cervical lymphadenopathy. Recommend repeat CT soft tissue neck post intravenous contrast
== END | disposition home or self-care (01) ==
PROVIDERS: PCP Nurse Practitioner; Referring Provider Nurse Practitioner; Visit Provider Nurse Practitioner
DX: R59.0 Localized enlarged lymph nodes (principal)
CPT/HCPCS: 76536

== ENCOUNTER → 2024-12-18 | Outpatient (CLI) | payer OTHER, SELFPAY ==
--- NOTE | 2024-12-18 | XR_ITS ---
Examination: CT soft tissue neck, with intravenous contrast. 2-D coronal reconstructions. 2-D sagittal reconstructions. Date and time of exam :December 18, 2024 0857 hours Comparison September 01, 2024 INDICATIONS: Palpable lymph nodes in the right neck 2 months. CTDI: vol (mGy):18.7 DLP: (mGycm):583 Technique: 1.25 mm axial sections of the neck of the obtained. Coronal and sagittal reconstructions have been obtained. Intravenous contrast administered 50 cc Isovue-370. Low dose protocols were performed. One or more of the following dose reduction techniques were used; automated exposure control, adjustment of the mA and/or KV according to patient size, use of iterative reconstruction technique. Findings: Symmetrical nasopharynx oropharynx Multiple carotid triangle submental lymph nodes, the largest lymph node in the right carotid triangle 9 mm and lymph node external to the right sternocleidomastoid muscle 12 mm The largest lymph node in the left carotid triangle region is 12 mm Symmetrical supraglottic region The larynx appears normal 4 mm 3 mm right thyroid nodules Normal epiglottis No prevertebral soft tissue prominence IMPRESSION: Significant cervical lymphadenopathy
== END | disposition home or self-care (01) ==
PROVIDERS: PCP Family Medicine; Referring Provider Nurse Practitioner; Visit Provider Nurse Practitioner
DX: R59.0 Localized enlarged lymph nodes (principal)
CPT/HCPCS: 70491; A4649; Q9967